=== PATIENT | male | born 1980 | race Caucasian/White ===

== ENCOUNTER 2018-10-28 20:09 | Emergency (ER) | payer OTHER ==
[~2018-10-28] VITALS: Ht 180.3 cm; Wt 81.6 kg
[2018-10-28 20:17] VITALS: BP_SYST 162
--- NOTE | 2018-10-28 21:43 | NUR ---
Pt ambulatory to bed 3 for evluation
--- NOTE | 2018-10-28 22:00 | NUR ---
2200 - Assumed care of pt. Pt states he was told he had a kidney stone, passed the stone on Sunday. Pt states for the last 3 days he has been having urinary frequency, pain/burning on urination and a sweet smell to urine. Denies hx of diabetes. Pt is A&OX4. ambulates w/ steady gait. Awaiting MD melvin.
--- NOTE | 2018-10-28 22:30 | NUR ---
2230 - ER at bedside examining patient.
[2018-10-28 22:40] LABS: BILIRUBIN,URINE NEGATIVE (NEGATIVE); BLOOD, URINE 1+ (NEGATIVE); CLARITY/URINE CLEAR (CLEAR); COLOR,URINE YELLOW (YELLOW); GLUCOSE,URINE NEGATIVE (NEGATIVE); KETONES,URINE NEGATIVE (NEGATIVE); LEUKOCYTE ESTERASE ,URINE NEGATIVE (NEGATIVE); NITRITE, URINE NEGATIVE (NEGATIVE); PROTEIN URINE NEGATIVE (NEGATIVE); UROBILINOGEN,URINE 0.2 (0.2-1.0)
--- NOTE | 2018-10-28 23:12 | NUR ---
2312 - Pt resting comfortably in [facility], no distress. Awaiting MD [email or web address].
[2018-10-28 23:24] VITALS: BP_SYST 150
--- NOTE | 2018-10-28 23:24 | NUR ---
2324 - Patient given written and verbal discharge instructions and verbalizes understanding. ER MD discussed with patient the results and treatment provided. Patient in stable condition. ID arm band removed. Patient educated on pain management and to follow up with PMD. Opportunity for questions provided and answered. Medication side effect fact sheet provided.
[2018-10-28 23:28] LABS: RBC,URINE 0-3 /HPF (0-3); WBC,URINE 0-3 /HPF (0-3)
[2018-10-28 23:29] LABS: BACTERIA,URINE FEW /HPF (None Seen); MUCUS,URINE 1+ /LPF (None Seen)
== END 2018-10-28 23:24 | disposition home or self-care (01) ==
LOC: SED 20:09
DX: N20.0 Calculus of kidney (principal); R30.0 Dysuria; R03.0 Elevated blood-pressure reading, without diagnosis of hypertension; F17.200 Nicotine dependence, unspecified, uncomplicated; Z71.6 Tobacco abuse counseling
CPT/HCPCS: 81000-TC; 99283